=== PATIENT | female | born 1995 | race Two or more races ===

== ENCOUNTER 2019-01-21 01:08 | Emergency (ER) | payer OTHER ==
[~2019-01-21] VITALS: Ht 171.4 cm; Wt 106.6 kg
[2019-01-21 01:08] VITALS: BP 143/71
== END 2019-01-21 02:48 ==
LOC: ER 01:08
DX: S20.211A Contusion of right front wall of thorax, initial encounter (principal); Z88.2 Allergy status to sulfonamides; Z88.1 Allergy status to other antibiotic agents; Y04.0XXA Assault by unarmed brawl or fight, initial encounter; Y93.89 Activity, other specified; Y92.89 Other specified places as the place of occurrence of the external cause; Y99.8 Other external cause status
CPT/HCPCS: 71045-TC; 84703-TC